=== PATIENT | male | born 1995 | race Two or more races ===

== ENCOUNTER 2024-09-03 18:47 | Emergency (ER) | payer OTHER ==
[~2024-09-03] VITALS: Ht 179.1 cm; Wt 51.7 kg
[2024-09-03] MEDS ORDERED: ZOLOFT100 MG PO (19:08)
[2024-09-03] MEDS ORDERED: CONCERTA54 MG PO (19:08)
[2024-09-03 20:48] LABS: HEMATOCRIT 38.1 % (39.0-48.0); HEMOGLOBIN 12.7 g/dL (13-16.00); MEAN CELL VOLUME 95.7 fL (80.0-100.00); MEAN CORPUSCULAR HEMOGLOBIN 31.9 pg (27.00-32.0); MEAN CORPUSCULAR HGB CONC 33.4 g/dl (32.0-36.0); PLATELET COUNT 189 K/uL (150-450); RED BLOOD COUNT 3.98 M/uL (4.00-6.00); RED CELL DISTRIBUTION WIDTH 13.3 % (11.5-14.5)
[2024-09-03] MEDS ORDERED: DEXAMETHASONE SODIUM PHOSPHATE 4 MG/ML VIAL IM STA (21:03)
[2024-09-03] MEDS ORDERED: DEXAMETHASONE SODIUM PHOSPHATE 4 MG/ML VIAL ONE (21:10)
== END 2024-09-03 21:22 | disposition home or self-care (01) ==
LOC: ER 18:50
DX: T78.49XA Other allergy, initial encounter (principal); X58.XXXA Exposure to other specified factors, initial encounter; Z88.8 Allergy status to other drugs, medicaments and biological substances